=== PATIENT | male | born 2000 | race Caucasian/White ===

== ENCOUNTER 2020-09-30 21:01 | Emergency (ER) | payer MEDICAID ==
[~2020-09-30] VITALS: Ht 182.9 cm; Wt 81.8 kg
[2020-09-30] MEDS ORDERED: diphenhydrAMINE 50 mg/ml inj IV ONE (22:00)
[2020-09-30] MEDS ORDERED: normal saline 1000ML IV soln IVB ONE ×2 (22:00)
[2020-09-30] MEDS ORDERED: ondansetron/PF 4mg/2ml inj IV ONE (22:00)
[2020-09-30] MEDS ORDERED: pantoprazole 40 MG vial IV ONE (22:00)
[2020-09-30 23:23] LABS: BASOPHILS % (AUTO) 0.4 % (0-1); EOSINOPHILS % (AUTO) 0.3 % (0-6); HEMOGLOBIN 13.5 g/dl (14.0-17.9); LYMPHOCYTES # (AUTO) 1.2 X10'3 (1.1-4.8); LYMPHOCYTES % (AUTO) 9.2 % (21-51); MEAN CORPUSCULAR HEMOGLOBIN 30.1 PG (27.0-31.0); MEAN CORPUSCULAR HGB CONC 33.6 g/dL (33.0-36.5); MEAN CORPUSCULAR VOLUME 89.6 FL (78-98); MEAN PLATELET VOLUME 9.5 FL (7.4-10.4); MONOCYTES # (AUTO) 0.4 X10'3 (0-0.9); MONOCYTES % (AUTO) 2.8 % (2-12); NEUTROPHILS # (AUTO) 11.5 X10'3 (1.8-7.7); NEUTROPHILS % (AUTO) 87.3 % (42-75); PLATELET COUNT 275 X10'3 (140-440); RED BLOOD COUNT 4.47 X10'6 (4.70-6.10); RED CELL DISTRIBUTION WIDTH 13.7 % (11.5-14.5); WHITE BLOOD COUNT 13.1 X10'3 (4.5-11.0)
[2020-09-30 23:33] LABS: ALANINE AMINOTRANSFERASE 33 U/L (12-78); ALBUMIN 4.4 G/DL (3.4-5.0); ALKALINE PHOSPHATASE 79 IU/L (20-180); ANION GAP 9 (8-16); ASPARTATE AMINO TRANSFERASE 23 U/L (10-37); BILIRUBIN,TOTAL 0.4 MG/DL (0.1-1.0); BLOOD UREA NITROGEN 9 MG/DL (7-18); BUN/CREATININE RATIO 12.2 (5.4-32.0); CALCIUM 9.7 MG/DL (8.5-10.1); CHLORIDE 104 MMOL/L (99-107); CREATININE 0.74 MG/DL (0.60-1.10); GLUCOSE 97 MG/DL (70-104); LIPASE 57 U/L (73-393); POTASSIUM 3.7 MMOL/L (3.5-5.1); SODIUM 141 MMOL/L (135-145); TOTAL CARBON DIOXIDE 27.9 MMOL/L (24-32); TOTAL PROTEIN 8.7 G/DL (6.4-8.2); eGFR > 90 ML/MIN
[2020-10-01] MEDS ORDERED: normal saline 1000ML IV soln IVB ONE (00:15)
[2020-10-01] MEDS ORDERED: iohexol 300mg/ml 100ml inj. ONE (00:18)
[2020-10-01 01:41] VITALS: BP 117/65
[2020-10-01] MEDS ORDERED: dexamethasone sod phosphate 10mg/ml inj IV STA (02:22)
[2020-10-01] MEDS ORDERED: mag hydrox/Alum hydrox/simeth 30ml oral suspension PO ONE (02:25)
[2020-10-01] MEDS ORDERED: LIDOcaine Viscous 15ml cup MM ONE (02:25)
[2020-10-01] MEDS ORDERED: diphenhydrAMINE 25 MG/10 ML UD oral solution PO ONE (02:25)
== END 2020-10-01 03:25 | disposition home or self-care (01) ==
LOC: ER 21:03
DX: R13.10 Dysphagia, unspecified (principal); R11.10 Vomiting, unspecified
CPT/HCPCS: 36415; 70360; 70491; 71045; 80053; 83690; 85025; 96361; 96374; 96375; 99285; C9113; J1100; J1200; J2405; J7030; Q0163; Q9967